=== PATIENT | male | born 1960 | race African-American/Black ===

== ENCOUNTER 2022-03-27 23:47 | Emergency (ER) | payer BC ==
[2022-03-28 00:03] VITALS: BP 90/58; PULSE 83; TEMP 97.6; BMI 32.3
[2022-03-28] MEDS ORDERED: ACETAMINOPHEN 500 MG TABLET (FP) PO ONE (01:15)
[2022-03-28] MEDS ORDERED: ACETAMINOPHEN 500 MG TABLET (FP) ONE (01:36)
== END 2022-03-28 04:25 | disposition home or self-care (01) ==
LOC: JER 23:47
DX: S49.92XA Unspecified injury of left shoulder and upper arm, initial encounter (principal)
CPT/HCPCS: 73030-TC-LT-FY; 99284-25